=== PATIENT | male | born 1990 ===

== ENCOUNTER 2016-06-12 02:40 | Emergency (ER) | payer OTHER ==
[2016-06-12 03:07] VITALS: RESP 14; TEMP 98; O2SAT 98
--- NOTE | 2016-06-12 03:36 | C.PDOC ---
History Of Present Illness Patient presents to ED with complaints of right arm and right upper leg pain after being hit by equipment at work yesterday. Patient discomfort is a 4/10 and denies loss of consciousness, . Pain is throbbing - HPI Time Seen by Provider: 06/12/16 03:36 Chief Complaint (Nursing): Trauma History Per: Patient History/Exam Limitations: no limitations Onset/Duration Of Symptoms: Days Location Of Injury: Right: Arm, Leg (right upper leg) Severity: Mild Pain Scale Rating Of: 3 Recent travel outside of the [place]: No Additional History Per: Patient Past Medical History Reviewed: Historical Data, Nursing Documentation, Vital Signs Vital Signs: Last Vital Signs Temp 98 F 06/12/16 03:02 Pulse 77 06/12/16 03:02 Resp 14 06/12/16 03:02 BP 168/102 H 06/12/16 03:02 Pulse Ox 98 06/12/16 04:09 Family History: States: No Known Family Hx - Social History Hx Alcohol Use: Yes Hx Substance Use: No - Immunization History Hx Tetanus Toxoid Vaccination: Yes Hx Influenza Vaccination: Yes Hx Pneumococcal Vaccination: No Review Of Systems Constitutional: Negative for: Fever, Chills Musculoskeletal: Positive for: Arm Pain (Right arm), Leg Pain (right upper leg ( thigh)) Skin: Negative for: Rash, Lesions Neurological: Negative for: Weakness Psych: Negative for: Anxiety Physical Exam - Physical Exam Appears: Non-toxic Skin: Warm, Dry Neck: Supple Extremity: Tenderness (right shoulder tenderness to palpitation), No Pedal Edema , Other (Decreased active motion, pain on passive and active motion) Extremity: Bilateral: Normal Color And Temperature, Normal ROM Pulses: Right Brachial: Decreased, Right Radial: Decreased, Right Femoral: Decreased Neurological/Psych: Oriented x3, Normal Speech, Normal Cognition Gait: Steady ED Course And Treatment O2 Sat by Pulse Oximetry: 98 Pulse Ox Interpretation: Normal - Other Rad shoulder X-Ray: Interpreted by Me, Viewed By Me Interpretation: ac dislocation Disposition Counseled Patient/Family Regarding: Studies Performed, Diagnosis, Need For Followup, Rx Given - Disposition Referrals: Neda Munoz MD [Staff Provider] - Disposition: HOME/ ROUTINE Disposition Time: 03:36 Condition: FAIR Additional Instructions: Must follow up with workman's comp doctor Prescriptions: Naproxen [Naprosyn] 1 tab PO BID PRN #25 tab PRN Reason: Pain Instructions: Arthralgia (ED) Forms: Work Excuse - Clinical Impression Clinical Impression: Acromioclavicular joint separation - 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 - Scribe Statement The provider has reviewed the documentation as recorded by the Saeidibjohn Walker All medical record entries made by the Saeidibjohn were at my direction and personally dictated by me. I have reviewed the chart and agree that the record accurately reflects my personal performance of the history, physical exam, medical decision making, and the department course for this patient. I have also personally directed, reviewed, and agree with the discharge instructions and disposition.
[2016-06-12 05:00] VITALS: BP 140/60; PULSE 80
--- NOTE | 2016-06-12 11:17 | RAD ---
PROCEDURE: Radiographs of the Right Shoulder HISTORY: pain, COMPARISON: None available. FINDINGS: BONES: No acute displaced fracture. The distal clavicle and underlying ribs appear intact. JOINTS: No acute dislocation. SOFT TISSUES: Soft tissues appear unremarkable. No evidence of radiopaque foreign body. IMPRESSION: No acute displaced fracture or dislocation evident. If symptoms persist or if there is continued clinical concern, x-ray follow-up in 7-10 days should be considered.
== END 2016-06-12 05:00 | disposition home or self-care (01) ==
LOC: C.ER 02:40
DX: S43.101A Unspecified dislocation of right acromioclavicular joint, initial encounter (principal); W22.8XXA Striking against or struck by other objects, initial encounter; Y92.69 Other specified industrial and construction area as the place of occurrence of the external cause; Y99.0 Civilian activity done for income or pay